=== PATIENT | female | born 2000 | race Caucasian/White ===

== ENCOUNTER 2020-04-23 17:18 | Emergency (ER) | payer SELFPAY ==
[~2020-04-23] VITALS: Ht 160 cm; Wt 114.0 kg
[2020-04-23 18:14] LABS: BILIRUBIN,URINE NEGATIVE (NEG); CLARITY,URINE CLEAR; COLOR,URINE YELLOW; NITRITE,URINE NEGATIVE (NEG); PROTEIN,URINE 30 mg/dL (NEG-TRACE); UROBILINOGEN,URINE 0.2 mg/dL (0.2 mg/dL)
[2020-04-23 18:21] LABS: HYALINE CASTS, URINE FEW /HPF; SQUAMOUS EPITHELIAL CELL,UR MANY /LPF
[2020-04-23 18:23] LABS: BACTERIA,URINE MANY /HPF (0-FEW); RBC,URINE 0 /HPF (0-2); WBC,URINE >40 /HPF (0-4); YEAST,URINE PRESENT /HPF
--- NOTE | 2020-04-23 18:34 | RAD ---
EXAM: CT Head without IV contrast INDICATION: Reason: dizzy x2 days, had cups hit head on 04/20 no LOC / Spl. Instructions: / History: TECHNIQUE: Multi-detector row CT images were obtained of the head without the use of IV contrast. All CT scans performed at this facility utilize dose optimization techniques as appropriate to the exam, including the following: Automated exposure control and adjustment of the mA and/or KV according to patient size (this includes techniques or standardized protocols for targeted exams where dose is indication/reason for exam). COMPARISON: None FINDINGS: BRAIN PARENCHYMA: No evidence of acute intraparenchymal hemorrhage or infarct. No abnormal parenchymal density or mass. VENTRICLES & EXTRA-AXIAL SPACES: Ventricles are within normal limits. Basilar cisterns are patent. No pathologic extra-axial fluid collection or mass. ORBITS: Orbital contents are unremarkable. SINUSES: Visualized paranasal sinuses and mastoid air cells are clear. OSSEOUS & SOFT TISSUES: Calvarium and skull base are intact. IMPRESSION: Normal CT of the head without contrast. Electronically signed by: Dulce Villalobos MD (04/23/2020 6:31 PM) [facility] [place]
--- NOTE | 2020-04-23 18:57 | EKG ---
[facility] [address] [place] [address] Test Date: 2020-04-23 Test Time: 18:30:05 Pat Name: SORIN DOUGLASS Department: Room: Gender: F Informatics Physician: : [id number] Requested By: ALDO SOUTH Order Number: [id number] Reading MD: Measurements Intervals [place] Rate: 97 P: 30 DE: 130 QRS: 23 QRSD: 92 T: 8 QT: 348 QTc: 446 Interpretive Statements SINUS RHYTHM NORMAL ECG RI6.02 Compared to ECG 04/23/2020 18:26:17 No significant changes
--- NOTE | 2020-04-23 18:59 | PHYS DOC ---
Past Medical History Past Medical History: Diabetes-Type II, High Cholesterol, Hypertension Additional Past Medical Histor: PANIC ATTACKS Past Surgical History: No Surgical History Smoking Status: Never Smoker Alcohol Use: None General Adult EDM: Chief Complaint: NEAR SYNCOPE HPI: HPI: Patient is a 19-year-old female, accompanied by her sister, who presents to the emergency department with complaints of intermittent dizzy spells for the last 2 days. She denies any syncope. Patient reports that 3 days ago she was working and had a crate of plastic cups fall on her face. She denies any loss of consciousness, neck pain, or headache after that injury. She reports a history of high blood pressure, type 2 diabetes, and high cholesterol but reports that she does not have a primary care doctor in this area as she recently moved here. Patient states that she has been rationing her medications that were previously prescribed by her previous doctor. She reports that the dizziness occurs when she changes position or suddenly moves. She denies any vision changes, ringing in her ears, numbness, tingling, weakness, dysphasia, dysphonia, fever, cough, shortness of breath, chest pain, palpitations, body aches, fatigue, fever, dysuria, hematuria, or increased urinary frequency. Patient denies polydipsia, polyphagia, or polyuria. She complains of right middle finger lateral nail bed erythema, warmth, tenderness, and edema without any drainage for the last few days. She denies any injury to her finger. She states she has not been able to check her blood sugars because she does not have a glucometer at this time. She currently denies any pain. Review of Systems: Review of Systems: Constitutional: Denies fever or chills. [] Eyes: Denies change in visual acuity. [] HENT: Denies nasal congestion or sore throat. [] Respiratory: Denies cough or shortness of breath. [] Cardiovascular: Denies chest pain or edema. [] GI: Denies abdominal pain, nausea, vomiting, bloody stools or diarrhea. [] : Denies dysuria. [] Musculoskeletal: Denies back pain or joint pain. [] Integument: Denies rash. [] Neurologic: Denies headache, or focal weakness; see HPI Endocrine: Denies polyuria or polydipsia. [] Lymphatic: Denies swollen glands. [] Psychiatric: Denies depression or anxiety. [] Heart Score: Risk Factors: Risk Factors: DM, Current or recent (<one month) smoker, HTN, HLP, family history of CAD, obesity. Risk Scores: Score 0 - 3: 2.5% MACE over next 6 weeks - Discharge Home Score 4 - 6: 20.3% MACE over next 6 weeks - Admit for Clinical Observation Score 7 - 10: 72.7% MACE over next 6 weeks - Early Invasive Strategies Allergies: Allergies: Allergies Coded Allergies Type Severity Reaction Last Updated Verified No Known Drug Allergies 04/23/20 No Physical Exam: PE: Constitutional: Well developed, well nourished, no acute distress, non-toxic appearance, obese. [] HENT: Normocephalic, atraumatic, bilateral external ears normal, dry mucous memb ranes, nose normal. [] Eyes: PERRLA, EOMI, conjunctiva normal, no discharge, no nystagmus. [] Neck: Normal range of motion, no tenderness, supple, no stridor. [] Cardiovascular:Heart rate regular rhythm, no murmur [] Lungs & Thorax: Bilateral breath sounds clear to auscultation, Respirations even and unlabored, no retractions, no respiratory distress [] Abdomen: Bowel sounds normal, soft, no tenderness, no masses, no pulsatile masses. [] Skin: Warm, dry; there is erythema, warmth, tenderness, and mild edema noted to the lateral aspect of the right third finger nailbed consistent with a paronychia, no purulent drainage or bleeding, no visible pustule Back: No CVA tenderness. [] Extremities: No cyanosis, ROM intact, no edema. [] Neurologic: Alert and oriented X 3, no focal deficits noted. [] Psychologic: Affect normal, judgement normal, mood normal. [] Current Patient Data: Labs: Laboratory Tests Test 04/23/20 17:43 04/23/20 17:49 04/23/20 17:59 Urine Collection Type Unknown Urine Color Yellow Urine Clarity Clear Urine pH 5.0 (<5.0-8.0) Urine Specific [place] >=1.030 (1.000-1.030) Urine Protein 30 mg/dL (NEG-TRACE) Urine Glucose (UA) >=1000 mg/dL (NEG) Urine Ketones (Stick) Trace mg/dL (NEG) Urine Blood Moderate (NEG) Urine Nitrite Negative (NEG) Urine Bilirubin Negative (NEG) Urine Urobilinogen Dipstick 0.2 mg/dL (0.2 mg/dL) Urine Leukocyte Esterase Small (NEG) Urine RBC 0 /HPF (0-2) Urine WBC >40 /HPF (0-4) Urine Squamous Epithelial Cells Many /LPF Urine Bacteria Many /HPF (0-FEW) Urine Hyaline Casts Few /HPF Urine Yeast Present /HPF POC Urine HCG, Qualitative Hcg negative (Negative) Glucose (Fingerstick) 283 mg/dL (70-99) H Vital Signs: Vital Signs Date Time Temp Pulse Resp B/P (MAP) Pulse Ox O2 Delivery O2 Flow Rate FiO2 04/23/20 18:00 97.5 100 20 176/94 (121) 97 Room Air 97.5 EKG: EK-this rhythm, rate 97, no STEMI, read by Dr. Farr [] Radiology/Procedures: Radiology/Procedures: PROCEDURE: CT HEAD WO CONTRAST EXAM: CT Head without IV contrast INDICATION: Reason: dizzy x2 days, had cups hit head on 04/20 no LOC / Spl. Instructions: / History: TECHNIQUE: Multi-detector row CT images were obtained of the head without the use of IV contrast. All CT scans performed at this facility utilize dose optimization techniques as appropriate to the exam, including the following: Automated exposure control and adjustment of the mA and/or KV according to patient size (this includes techniques or standardized protocols for targeted exams where dose is indication/reason for exam). COMPARISON: None FINDINGS: BRAIN PARENCHYMA: No evidence of acute intraparenchymal hemorrhage or infarct. No abnormal parenchymal density or mass. VENTRICLES & EXTRA-AXIAL SPACES: Ventricles are within normal limits. Basilar cisterns are patent. No pathologic extra-axial fluid collection or mass. ORBITS: Orbital contents are unremarkable. SINUSES: Visualized paranasal sinuses and mastoid air cells are clear. OSSEOUS & SOFT TISSUES: Calvarium and skull base are intact. IMPRESSION: Normal CT of the head without contrast. [] Course & Med Decision Making: Course & Med Decision Making Pertinent Labs and Imaging studies reviewed. (See chart for details) 19-year-old female presented to the emergency department with chief complaint of dizziness. Work-up included IV, labs, IV fluids, orthostatic blood pressures, EKG, and CT head CT head was unremarkable for any acute findings. CBC was unremarkable; CMP revealed a blood glucose of 254, total bilirubin of 1.4, AST of 51, ALT of 90, otherwise was unremarkable; patient urinalysis was negative for bilirubin, there were trace ketones, no red blood cells, and greater than 40 white blood cells with bacteria and yeast present in the urine. Patient was given 1 L of normal saline, Tylenol, and 1 g of Rocephin IV while in the emergency department. I discussed the findings with the patient patient reported that she had been fighting a yeast infection recently after I advised her of the yeast being in her urine. Prescriptions written for Keflex and fluconazole to take after the antibiotics are completed. Provided the patient with a list of primary care doctors in this area to follow-up with. Patient verbalized an understanding of home care, medications, follow-up, and return to ED instructions and was in agreement with the plan of care. Dragon Disclaimer: Dragon Disclaimer: This electronic medical record was generated, in whole or in part, using a voice recognition dictation system. Departure Departure Impression: Primary Impression: Yeast UTI Additional Impressions: Paronychia of finger of right hand Hyperglycemia Disposition: 01 HOME, SELF-CARE Condition: STABLE Referrals: NO PCP (PCP) Patient Instructions: Hyperglycemia, [id number], Paronychia, Shpl-mi-Momt, Urinary Tract Infection, [id number] Additional Instructions: Fill prescription(s) and use as directed. Avoid bladder irritants such as caffeine, carbonation, and spicy foods. Increase clear fluids. Follow up 1 of the primary care doctors listed below for reevaluation and management of your diabetes, return to the ER if symptoms worsen. [facility] [address] [place] [address] [facility] [address] [place] [address] [facility] [address] [facility] [place] [address] [facility] [address] [place] [address] [facility] [address] [place] [address] [facility] [address] [place] [address] [address] [address] [place] [address] [facility] [address] [place] [address] [facility] [address] [place] [address] [facility] Department [address] [place] [address] Scripts Fluconazole (DIFLUCAN) 150 Mg Tablet 1 TAB PO ONCE, #1 TAB 1 Refill Take after completion of antibiotics. May repeat in 72 hours if symptoms persist Prov: ALDO SOUTH APRN 04/23/20 Cephalexin (CEPHALEXIN) 500 Mg Capsule 1 CAP PO QID for 7 Days, #28 CAP 0 Refills Prov: ALDO SOUTH APRN 04/23/20 Justicifation of Admission Dx: Justifications for Admission: Justification of Admission Dx: N/A ALDO SOUTH APRN Apr 23, 2020 18:59
[2020-04-23 19:06] LABS: BASO # 0.1 x10^3/uL (0.0-0.2); BASO % 1 % (0-3); EOS # 0.5 x10^3/uL (0.0-0.7); EOS % 4 % (0-3); HEMATOCRIT 46.6 % (36.0-47.0); HEMOGLOBIN 16.4 g/dL (12.0-15.5); LYMPH # 3.5 x10^3/uL (1.0-4.8); LYMPH % 32 % (24-48); MEAN CORPUSCULAR HEMOGLOBIN 33 pg (25-35); MEAN CORPUSCULAR HGB CONC 35 g/dL (31-37); MEAN CORPUSCULAR VOLUME 92 fL (79-100); MONO # 0.6 x10^3/uL (0.0-1.1); MONO % 6 % (0-9); NEUT # 6.2 x10^3/uL (1.8-7.7); NEUT % 57 % (31-73); PLATELET COUNT 260 x10^3/uL (140-400); RED BLOOD COUNT 5.04 x10^6/uL (3.50-5.40); WHITE BLOOD COUNT 10.8 x10^3/uL (4.0-11.0)
[2020-04-23 19:11] LABS: CALCIUM 9.6 mg/dL (8.5-10.1); CREATININE 0.7 mg/dL (0.6-1.0); GFR 107.8; POTASSIUM 4.5 mmol/L (3.5-5.1)
[2020-04-23 19:17] LABS: ALBUMIN 3.9 g/dL (3.4-5.0); ALBUMIN/GLOBULIN RATIO 0.9 (1.0-1.7); TOTAL BILIRUBIN 1.4 mg/dL (0.2-1.0); TOTAL PROTEIN 8.1 g/dL (6.4-8.2)
[2020-04-23] MEDS ORDERED: IV NORMAL SALINE 1000ML BAG 1,000 ML IV ONE (20:00)
[2020-04-23] MEDS ORDERED: cefTRIAXone IV Push 1 GM VIAL. IVP ONE (20:30)
[2020-04-23] MEDS ORDERED: ACETAMINOPHEN 500 MG TABLET PO ONE (21:00)
[2020-04-23] MEDS ORDERED: CEPH500C PO (21:18)
[2020-04-23] MEDS ORDERED: FLUC150T PO (21:18)
[2020-04-23 21:31] VITALS: BP 139/77
== END 2020-04-23 21:40 | disposition home or self-care (01) ==
LOC: ER 17:18
DX: B37.49 Other urogenital candidiasis (principal); L03.011 Cellulitis of right finger; R42 Dizziness and giddiness; E11.65 Type 2 diabetes mellitus with hyperglycemia; E78.00 Pure hypercholesterolemia, unspecified; I10 Essential (primary) hypertension
CPT/HCPCS: 36415; 70450; 80053; 81001; 81025; 82962; 85025; 87086; 93005; 96361; 96374; 99285; J0696; J7030

== ENCOUNTER 2021-02-27 02:48 | Emergency (ER) | payer SELFPAY ==
[~2021-02-27] VITALS: Ht 158.8 cm; Wt 107.4 kg
[~2021-02-27 02:48] MED LIST: CEPH500C PO; FLUC150T PO
[2021-02-27 03:00] VITALS: BP 124/91
[2021-02-27 03:24] LABS: BILIRUBIN,URINE NEGATIVE (NEG); CLARITY,URINE TURBID; COLOR,URINE YELLOW; NITRITE,URINE NEGATIVE (NEG); PROTEIN,URINE 100 mg/dL (NEG-TRACE); UROBILINOGEN,URINE 0.2 mg/dL (0.2 mg/dL)
--- NOTE | 2021-02-27 03:25 | ED.ADGEN ---
Past Medical History Past Medical History: Diabetes-Type II, High Cholesterol, Hypertension Additional Past Medical Histor: PANIC ATTACKS Past Surgical History: No Surgical History Smoking Status: Never Smoker Alcohol Use: None General Adult EDM: Chief Complaint: VAGINAL PROBLEM HPI: HPI: Patient is a 20 year old female coming in for urinary frequency and pressure. Patient denies any discharge or hematuria. Says symptoms been going on for about 2 days but he was today because you have trouble sleeping because she gets up to get up to urinate. No systemic complaints. Denies any history of urinary tract infections. Review of Systems: Review of Systems: All other systems within normal limits except for as noted in the HPI Allergies: Allergies: Allergies Coded Allergies Type Severity Reaction Last Updated Verified No Known Drug Allergies 04/23/20 No Physical Exam: PE: Constitutional: Well developed, well nourished, no acute distress, non-toxic appearance. [] HENT: Normocephalic, atraumatic, bilateral external ears normal, nose normal. [] Eyes: PERRLA, conjunctiva normal, no discharge. [] Neck: No rigidity, supple, no stridor. [] Cardiovascular: Regular rate and rhythm, brisk cap refill [] Lungs & Thorax: Non labored symmetric respirations, no tachypnea or respiratory distress [] Abdomen: Soft, nondistended. Skin: Warm, dry, no erythema, no rash. [] Back: Unremarkable Extremities: No deformities, range of motion grossly intact, no lower extremity edema [] Neurologic: Alert and oriented X 3, no focal deficits noted. [] Psychologic: Affect normal, judgement normal, mood normal. [] Current Patient Data: Labs: Laboratory Tests Test 02/27/21 02:35 02/27/21 03:01 Urine Collection Type Unknown Urine Color Yellow Urine Clarity Turbid Urine pH 6.0 (<5.0-8.0) Urine Specific [place] >=1.030 (1.000-1.030) Urine Protein 100 mg/dL (NEG-TRACE) Urine Glucose (UA) >=1000 mg/dL (NEG) Urine Ketones (Stick) Trace mg/dL (NEG) Urine Blood Large (NEG) Urine Nitrite Negative (NEG) Urine Bilirubin Negative (NEG) Urine Urobilinogen Dipstick 0.2 mg/dL (0.2 mg/dL) Urine Leukocyte Esterase Moderate (NEG) Urine RBC 1-2 /HPF (0-2) Urine WBC Tntc /HPF (0-4) Urine Squamous Epithelial Cells Few /LPF Urine Bacteria Few /HPF (0-FEW) POC Urine HCG, Qualitative Hcg negative (Negative) Vital Signs: Vital Signs Date Time Temp Pulse Resp B/P (MAP) Pulse Ox O2 Delivery O2 Flow Rate FiO2 02/27/21 03:00 98.7 84 16 124/91 (102) 97 Room Air 98.7 EKG: EKG: [] Heart Score: C/O Chest Pain: No Risk Factors: Risk Factors: DM, Current or recent (<one month) smoker, HTN, HLP, family hist ory of CAD, obesity. Risk Scores: Score 0 - 3: 2.5% MACE over next 6 weeks - Discharge Home Score 4 - 6: 20.3% MACE over next 6 weeks - Admit for Clinical Observation Score 7 - 10: 72.7% MACE over next 6 weeks - Early Invasive Strategies Radiology/Procedures: Radiology/Procedures: [] Course & Med Decision Making: Course & Med Decision Making Patient declines pelvic exam or swabs to check for STDs. Kontest Disclaimer: Kontest Disclaimer: This electronic medical record was generated, in whole or in part, using a voice recognition dictation system. Departure Departure Impression: Primary Impression: Urinary tract infection Disposition: HOME / SELF CARE / HOMELESS Condition: STABLE Referrals: NO PCP (PCP) Patient Instructions: Urinary Tract Infection Scripts Phenazopyridine Hcl (PYRIDIUM) 100 Mg Tablet 100 MG PO TID for dysuria for 3 Days, #9 TAB Prov: CHRIS JULIEN MD 02/27/21 Cephalexin (CEPHALEXIN) 500 Mg Capsule 1 CAP PO BID for antibiotic for 5 Days, #10 CAP Prov: CHRIS JULIEN MD 02/27/21 CHRIS JULIEN MD Feb 27, 2021 03:25
[2021-02-27 03:32] LABS: BACTERIA,URINE FEW /HPF (0-FEW); WBC,URINE TNTC /HPF (0-4)
[2021-02-27] MEDS ORDERED: CEPH500C PO (03:37)
[2021-02-27] MEDS ORDERED: PHEN100T82 PO (03:37)
[2021-02-27] MEDS ORDERED: CEPHALEXIN 250 MG CAPSULE. PO ONE (03:45)
[2021-02-27] MEDS ORDERED: PHENAZOPYRIDINE 200 MG TABLET. PO ONE (03:45)
== END 2021-02-27 03:50 | disposition home or self-care (01) ==
LOC: ER 02:48
DX: N39.0 Urinary tract infection, site not specified (principal); E11.9 Type 2 diabetes mellitus without complications; E78.00 Pure hypercholesterolemia, unspecified; I10 Essential (primary) hypertension
CPT/HCPCS: 81001; 81025; 87077; 87086; 87186; 99283

== ENCOUNTER 2021-04-08 15:53 | Emergency (ER) | payer SELFPAY ==
[~2021-04-08 15:53] MED LIST changes: +PHEN100T82 PO
== END 2021-04-08 18:20 | disposition left against medical advice (07) ==
LOC: ER 15:53
DX: R10.9 Unspecified abdominal pain (principal); Z53.21 Procedure and treatment not carried out due to patient leaving prior to being seen by health care provider